=== PATIENT | male | born 1970 | race Caucasian/White ===

== ENCOUNTER 2018-08-05 17:32 | Emergency (ER) | payer OTHER ==
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
[2018-08-05] MEDS ORDERED: fentaNYL 100 MCG/2 ML INJ IVP ONE ×3 (17:41→18:24)
[2018-08-05] MEDS ORDERED: ONDANSETRON 4 MG/2 ML VIAL IVP ONE (17:41)
[2018-08-05] MEDS ORDERED: NS 1,000 ML IV ONE (17:41)
[2018-08-05 18:14] LABS: PLATELET COUNT 233 10^3/uL (150-400)
[2018-08-05] MEDS ORDERED: PROPOFOL 200 MG/20 ML VIAL IVP ONE (18:24)
[2018-08-05 18:55] LABS: INR 0.91 (0.83-1.16); PROTIME(PATIENT) 11.9 SEC (12.0-15.0)
[2018-08-05] MEDS ORDERED: OXYCODONE/APAP 5/325MG PREPACK#4 BTL TAKEHOME ONE (19:46)
[2018-08-05 19:59] VITALS: BP 140/79
== END 2018-08-05 19:59 | disposition home or self-care (01) ==
PROC: 0RSMXZZ Reposition Left Elbow Joint, External Approach (ICD-10-PCS; principal; 2018-08-05)
DX: S52.125A Nondisplaced fracture of head of left radius, initial encounter for closed fracture (principal); S53.105A Unspecified dislocation of left ulnohumeral joint, initial encounter; S80.212A Abrasion, left knee, initial encounter; V19.9XXA Pedal cyclist (driver) (passenger) injured in unspecified traffic accident, initial encounter; Y93.55 Activity, bike riding
CPT/HCPCS: 82435-PO; 82565-PO; 82947-PO; 84132-PO; 84295-PO; 84520-PO; 85014-ER; 96374; A4565; J2405; J2704; J3010